=== PATIENT | male | born 1970 | race Caucasian/White ===

== ENCOUNTER → 2017-09-08 | Day surgery (SDC) | payer OTHER ==
[~2017-09-08] MED LIST: IV RINGERS,LACTATED 1000ML 1,000 ML IV; LIDOCAINE 1% PF 2 ML VIAL. ID; MIDAZOLAM HCL/PF 2 MG/2 ML VIAL. IV; PROPOFOL 20 ML IV; fentaNYL PF VIAL 100 MCG/2 ML VIAL IV
[2017-09-08] MEDS: IV RINGERS,LACTATED 1000ML 1,000 ML IV ×2 (07:08)
== END | disposition home or self-care (01) ==
LOC: ENDOS 06:36
DX: K21.0 Gastro-esophageal reflux disease with esophagitis (principal); K44.9 Diaphragmatic hernia without obstruction or gangrene; K29.50 Unspecified chronic gastritis without bleeding; K22.70 Barrett's esophagus without dysplasia; I25.10 Atherosclerotic heart disease of native coronary artery without angina pectoris; I10 Essential (primary) hypertension; E66.9 Obesity, unspecified
CPT/HCPCS: 43239; 88305; J2704

== ENCOUNTER 2018-05-28 21:09 | Inpatient (IN) | payer OTHER ==
[~2018-05-28] VITALS: Ht 172.7 cm; Wt 82.6 kg
[~2018-05-28 21:09] MED LIST changes: +ASPI-482 PO; +CARV3.12 PO; +CLOP75TA PO; +ESOM40CA PO; -IV RINGERS,LACTATED 1000ML 1,000 ML IV; -LIDOCAINE 1% PF 2 ML VIAL. ID; -MIDAZOLAM HCL/PF 2 MG/2 ML VIAL. IV; -PROPOFOL 20 ML IV; -fentaNYL PF VIAL 100 MCG/2 ML VIAL IV; +nexium
[2018-05-28 21:57] LABS: BASO % 1 % (0-3); EOS # 0.3 x10^3/uL (0.0-0.7); EOS % 4 % (0-3); HEMATOCRIT 43.9 % (39.0-53.0); HEMOGLOBIN 15.5 g/dL (13.0-17.5); LYMPH # 1.6 x10^3/uL (1.0-4.8); LYMPH % 23 % (24-48); MEAN CORPUSCULAR HEMOGLOBIN 33 pg (25-35); MEAN CORPUSCULAR HGB CONC 35 g/dL (31-37); MEAN CORPUSCULAR VOLUME 93 fL (79-100); MONO # 0.7 x10^3/uL (0.0-1.1); MONO % 10 % (0-9); NEUT # 4.4 x10^3uL (1.8-7.7); NEUT % 62 % (31-73); PLATELET COUNT 209 x10^3/uL (140-400); RED BLOOD COUNT 4.73 x10^6/uL (4.30-5.70); RED CELL DISTRIBUTION WIDTH 12.6 % (11.5-14.5)
[2018-05-28 22:05] LABS: PROTHROMBIN TIME PATIENT 12.8 SEC (11.7-14.0)
[2018-05-28 22:07] LABS: CALCIUM 9.2 mg/dL (8.5-10.1); CREATININE 1.2 mg/dL (0.7-1.3); GFR 64.9; POTASSIUM 3.5 mmol/L (3.5-5.1)
[2018-05-28 22:13] LABS: ALBUMIN 3.8 g/dL (3.4-5.0); ALBUMIN/GLOBULIN RATIO 1.2 (1.0-1.7); MAGNESIUM 2.2 mg/dL (1.8-2.4); TOTAL BILIRUBIN 0.6 mg/dL (0.2-1.0); TOTAL PROTEIN 7.1 g/dL (6.4-8.2)
[2018-05-28] MEDS ORDERED: ASPIRIN CHEWABLE 81 MG TABLET. PO ONE (22:15)
[2018-05-28] MEDS ORDERED: IV NORMAL SALINE 1000ML BAG 1,000 ML IV ONE (22:15)
--- NOTE | 2018-05-28 22:26 | PHYS DOC ---
Past Medical History Past Medical History: CAD, GERD Past Surgical History: Other Additional Past Surgical Histo: DEVIATED SEPTUM, Cardiac stents Additional Information: Nonsmoker Alcohol Use: None Drug Use: None Adult General Chief Complaint Chief Complaint: CHEST PAIN HPI HPI 47-year-old male with past medical history of CAD requiring stents presents with report of "chest discomfort "2-3 days. Patient reports symptoms did not improve or resolve and therefore patient presented to the ED for evaluation. 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 Zayas who instructed patient to take an extra baby aspirin daily. Patient also report taking nitroglycerine yesterday x 2 with limited relief of symptoms. Reports taking 81mg ASA just prior to arrival to ED. Patient does report some radiation into his jaw and left arm. Reports he currently does not have any pain and patient reports he does not want to stay in the hospital and is hoping to "get things checked out" and be discharged home. Cardiac risk factors of prior CAD and significant family history of CAD. Review of Systems Review of Systems Constitutional: Denies fever or chills [] Eyes: Denies change in visual acuity, redness, or eye pain [] HENT: Denies nasal congestion or sore throat [] Respiratory: Denies cough or shortness of breath [] Cardiovascular: Reports chest pain, denies palpitations or pleuritic pain GI: Denies abdominal pain, nausea, vomiting, or diarrhea [] Musculoskeletal: Denies back pain or leg pain [] Integument: Denies rash or diaphoresis or swelling Neurologic: Denies headache, focal weakness or sensory changes [] Complete systems were reviewed and found to be within normal limits, except as documented in this note. Current Medications Current Medications Current Medications Medications (Trade) Dose Ordered Sig/Alisson Start Time Stop Time Status Last Admin Dose Admin Aspirin (Children'S Aspirin) 243 mg 1X ONCE 05/28/18 22:15 05/28/18 22:16 DC 05/28/18 22:31 243 MG Fentanyl Citrate (Fentanyl 2ml Vial) 50 mcg PRN Q2HR PRN 05/28/18 22:30 05/29/18 22:29 Heparin Sodium (Porcine) (Heparin Sodium) 10,000 unit STK-MED ONCE 05/28/18 22:30 05/28/18 22:31 DC Heparin Sodium/ Dextrose 500 ml @ As Directed STK-MED ONCE 05/28/18 22:30 05/28/18 22:31 DC Info (Anti-Coagulation Monitoring By Pharmacy) 1 each PRN DAILY PRN 05/28/18 22:45 05/29/18 01:50 1 EACH Ondansetron HCl (Zofran) 4 mg PRN Q8HRS PRN 05/28/18 22:30 05/29/18 22:29 Sodium Chloride 1,000 ml @ 1,000 mls/hr 1X ONCE 05/28/18 22:15 05/28/18 23:14 DC 05/28/18 22:36 1,000 MLS/HR Allergies Allergies Allergies Coded Allergies Type Severity Reaction Last Updated Verified No Known Drug Allergies 01/13/15 No Physical Exam Physical Exam Constitutional: Well developed, well nourished, no acute distress, non-toxic appearance. [] HENT: Normocephalic, atraumatic, oropharynx moist Eyes: Conjunctiva normal, no discharge. [] Neck: Normal range of motion, no tenderness Cardiovascular: Heart rate regular rhythm, no murmur [] Lungs & Thorax: Bilateral breath sounds clear to auscultation [] Abdomen: Soft, no tenderness Skin: Warm, dry, no erythema, no rash. [] Extremities: No calf tenderness, ROM intact, no edema. [] Neurologic: Alert and oriented X 3, normal motor function, normal sensory function, no focal deficits noted. [] Psychologic: Affect normal, judgement normal, mood normal. [] Current Patient Data Vital Signs Vital Signs Date Time Temp Pulse Resp B/P (MAP) Pulse Ox O2 Delivery O2 Flow Rate FiO2 05/28/18 22:30 56 17 148/100 (116) 97 Room Air 05/28/18 21:12 98.2 98.2 Lab Values Laboratory Tests Test 05/28/18 21:25 White Blood Count 7.0 x10^3/uL (4.0-11.0) Red Blood Count 4.73 x10^6/uL (4.30-5.70) Hemoglobin 15.5 g/dL (13.0-17.5) Hematocrit 43.9 % (39.0-53.0) Mean Corpuscular Volume 93 fL (79-100) Mean Corpuscular Hemoglobin 33 pg (25-35) Mean Corpuscular Hemoglobin Concent 35 g/dL (31-37) Red Cell Distribution Width 12.6 % (11.5-14.5) Platelet Count 209 x10^3/uL (140-400) Neutrophils (%) (Auto) 62 % (31-73) Lymphocytes (%) (Auto) 23 % (24-48) L Monocytes (%) (Auto) 10 % (0-9) H Eosinophils (%) (Auto) 4 % (0-3) H Basophils (%) (Auto) 1 % (0-3) Neutrophils # (Auto) 4.4 x10^3uL (1.8-7.7) Lymphocytes # (Auto) 1.6 x10^3/uL (1.0-4.8) Monocytes # (Auto) 0.7 x10^3/uL (0.0-1.1) Eosinophils # (Auto) 0.3 x10^3/uL (0.0-0.7) Basophils # (Auto) 0.0 x10^3/uL (0.0-0.2) Prothrombin Time 12.8 SEC (11.7-14.0) Prothrombin Time INR 1.0 (0.8-1.1) Sodium Level 141 mmol/L (136-145) Potassium Level 3.5 mmol/L (3.5-5.1) Chloride Level 106 mmol/L (98-107) Carbon Dioxide Level 27 mmol/L (21-32) Anion Gap 8 (6-14) Blood Urea Nitrogen 12 mg/dL (8-26) Creatinine 1.2 mg/dL (0.7-1.3) Estimated GFR (Cockcroft-Gault) 64.9 BUN/Creatinine Ratio 10 (6-20) Glucose Level 124 mg/dL (70-99) H Calcium Level 9.2 mg/dL (8.5-10.1) Magnesium Level 2.2 mg/dL (1.8-2.4) Total Bilirubin 0.6 mg/dL (0.2-1.0) Aspartate Amino Transferase (AST) 22 U/L (15-37) Alanine Aminotransferase (ALT) 38 U/L (16-63) Alkaline Phosphatase 76 U/L (46-116) Creatine Kinase 108 U/L (39-308) Creatine Kinase MB (Mass) 1.7 ng/mL (0.0-3.6) Creatine Kinase MB Relative Index 1.6 % (0-4) Troponin I Quantitative 0.334 ng/mL (0.000-0.055) ZR-Qnn-H-Type Natriuretic Peptide 81 pg/mL (0-124) Total Protein 7.1 g/dL (6.4-8.2) Albumin 3.8 g/dL (3.4-5.0) Albumin/Globulin Ratio 1.2 (1.0-1.7) Lipase 335 U/L (73-393) Laboratory Tests 05/28/18 21:25 Laboratory Tests 05/28/18 21:25 EKG EKG @2112 Sinus bradycardia at 59bpm, NO ST elevation Radiology/Procedures Radiology/Procedures PROCEDURE: CHEST PA & LATERAL PA and lateral chest. HISTORY: Chest pain PA and lateral views were taken of the chest. Lungs are clear. Heart is normal in size. There is no effusion. IMPRESSION: 1. No acute chest disease. Electronically signed by: Abdelrahman Puga MD (05/28/2018 10:27 PM) [facility] Course & Med Decision Making Course & Med Decision Making Pertinent Labs and Imaging studies reviewed. (See chart for details) patient was significant cardiac risk factors presents with report of "chest discomfort "with report of radiation to left jaw and left arm. Patient denies current pain. 243mg of aspirin provided as patient reports taking 81mg aspirin just prior to arrival. EKG stable. Labs obtained and posted to chart. Troponin indeterminate with concern for NSTEMI. CXR without acute process. Discussed case with Dr. Zayas (cardiology) regarding case. Given symptoms and patient's risk factors, patient requiring admission for further evaluation and treatment. Dr. Zayas is in agreement with admission and request initiation of heparin bolus/gtt. Discussed findings and plan with patient and family, who acknowledge understanding and agreement. Metares[employer] voice recognition software utilized. [employer] Disclaimer [employer] Disclaimer This electronic medical record was generated, in whole or in part, using a voice recognition dictation system. Departure Departure Impression: Primary Impression: NSTEMI (non-ST elevated myocardial infarction) Disposition: 09 ADMITTED INPATIENT Admitting Physician: Bryant Zayas Condition: GUARDED Referrals: BRYANT ZAYAS MD (PCP) Critical Care Time Critical Care Time Spent: 30 minutes Services Performed: Patient management by me, Time spent at bedside, Reviewing test results, Reviewing imaging, Discussing patient care, Documentation in record, Time with fam/surrogate Total critical care time [30 min]. Total critical care time documented does not include time spent on separately billed procedures or the services of residents , students, nurses or physician assistants. I personally saw and examined the patient. I have reviewed all diagnostic interpretations and treatment plans as written. I was present for the cabrales portions of any procedures performed and the inclusive time noted in any critical care statement. Critical care time includes patient management by me, time spent at the patients bedside, time to review lab and imaging results, discussing patient care, documentation in the medical record, and time spent with the family or caregiver. TROY ROY DO May 28, 2018 22:26
[2018-05-28] MEDS ORDERED: ONDANSETRON PF 4 MG/2 ML VIAL. IV PRN (22:30)
[2018-05-28] MEDS ORDERED: HEPARIN for IV BOLUS 10,000 UNIT/10 ML VIAL. ONE (22:30)
[2018-05-28] MEDS ORDERED: HEPARIN 25,000UTS/500ML PREMIX 500 ML IV ONE (22:30)
[2018-05-28] MEDS ORDERED: fentaNYL PF VIAL 100 MCG/2 ML VIAL IV PRN (22:30)
--- NOTE | 2018-05-28 22:30 | RAD ---
PA and lateral chest. HISTORY: Chest pain PA and lateral views were taken of the chest. Lungs are clear. Heart is normal in size. There is no effusion. IMPRESSION: 1. No acute chest disease. Electronically signed by: Abdelrahman Puga MD (05/28/2018 10:27 PM) [facility]
[2018-05-28] MEDS: HEPARIN 25,000UTS/500ML PREMIX 500 ML IV PRN (22:35)
[2018-05-28] MEDS ORDERED: ANTI-COAG MONITOR BY PHARMACY. MC PRN (22:45)
[2018-05-28] MEDS ORDERED: HEPARIN for IV BOLUS 10,000 UNIT/10 ML VIAL. IV ONE (23:00)
[2018-05-28 23:30] VITALS: BP 153/103
--- NOTE | 2018-05-29 00:31 | EKG ---
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
[2018-05-29] MEDS ORDERED: OMEG1CAP6 PO (00:40)
--- NOTE | 2018-05-29 02:03 | EKG ---
[facility] [address] [place] [address] Test Date: 2018-05-28 Test Time: 21:12:12 Pat Name: SKY WHITTAKER Department: Room: 267 1 Gender: M [employer]er [employer]: : 1970 Requested By: TROY ROY Order Number: [id number] Reading MD: Nav Cooney MD Measurements Intervals [place] Rate: 59 P: 26 WV: 152 QRS: -4 QRSD: 92 T: 36 QT: 392 QTc: 392 Interpretive Statements SINUS RHYTHM Electronically Signed On 05-30-2018 11:43:21 CDT by Nav Cooney MD
[2018-05-29 03:00] VITALS: BP 105/63
--- NOTE | 2018-05-29 06:13 | EKG ---
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
[2018-05-29 06:21] LABS: CHOLESTEROL/HDL RATIO 5.9
[2018-05-29 07:34] VITALS: BP 118/75
[2018-05-29 10:56] VITALS: BP 134/88
--- NOTE | 2018-05-29 11:49 | PDOC1 ---
History and Physical Date of Admission Date of Admission DATE: 05/29/18 TIME: 11:45 Identification/Chief Complaint Chief Complaint Chest pain History of Present Illness History of Present Illness This patient is a 47-year-old gentleman with a known history of hypertension and coronary artery disease that had a stent placed about 20 half years ago. For the last 3 days he has been having intermittent episodes of chest pains and he did not want to come into the hospital until finally last night he had more chest discomfort and he came to the ER. After arrival in the ER his EKG did not show any acute ST segment elevation but he had a mild elevation of the troponin. Therefore he was admitted and started on IV heparin. Today he is not having any chest pains at this time. Past Medical History Cardiovascular: CAD, HTN GI: GERD Current Problem List Problem List Problems Medical Problems: (1) NSTEMI (non-ST elevated myocardial infarction) Status: Acute Current Medications Current Medications Current Medications Aspirin (Children'S Aspirin) 243 mg 1X ONCE PO Last administered on at 22:31; Start 05/28/18 at 22:15; Stop 05/28/18 at 22:16; Status DC Sodium Chloride 1,000 ml @ 1,000 mls/hr 1X ONCE IV Last administered on 05/28at 22:36; Start 05/28/18 at 22:15; Stop 05/28/18 at 23:14; Status DC Heparin Sodium (Porcine) (Heparin Sodium) 4,000 unit 1X ONCE IV Last administered on 05/28/18at 22:35; Start 05/28/18 at 23:00; Stop 05/28/18 at 23 :01; Status DC Heparin Sodium/ Dextrose 500 ml @ 0 mls/hr CONT PRN IV SEE I/O RECORD Last administered on 05/28/18at 22:35; Start 05/28/18 at 22:30 Info (Anti-Coagulation Monitoring By Pharmacy) 1 each PRN DAILY PRN MC SEE COMMENTS Last administered on 05/29/18at 01:50; Start 05/28/18 at 22:45 Ondansetron HCl (Zofran) 4 mg PRN Q8HRS PRN IV NAUSEA/VOMITING 1ST CHOICE; Start 05/28/18 at 22:30; Stop 05/29/18 at 22:29 Fentanyl Citrate (Fentanyl 2ml Vial) 50 mcg PRN Q2HR PRN IV SEVERE PAIN; Start 05/28/18 at 22:30; Stop 05/29/18 at 22:29 Heparin Sodium (Porcine) (Heparin Sodium) 10,000 unit STK-MED ONCE .ROUTE ; Start 05/28/18 at 22:30; Stop 05/28/18 at 22:31; Status DC Heparin Sodium/ Dextrose 500 ml @ As Directed STK-MED ONCE IV ; Start at 22:30; Stop 05/28/18 at 22:31; Status DC Aspirin (Ecotrin) 81 mg DAILY PO ; Start 05/30/18 at 09:00; Status UNV Clopidogrel Bisulfate (Plavix) 75 mg DAILY PO ; Start 05/30/18 at 09:00; Status UNV Fish Oil (Fish Oil) 1,000 mg DAILY PO ; Start 05/30/18 at 09:00; Status UNV Non-Formulary Medication (Esomeprazole Magnesium (Nexium Capsule)) 40 mg DAILYAC PO ; Start 05/30/18 at 07:30; Status UNV Active Scripts Active Reported Fish Oil 1,000 Mg Capsule (Hopkins-3 Fatty Acids/Fish Oil) 1 Each Capsule 1 Each PO DAILY Nexium Capsule (Esomeprazole Magnesium) 40 Mg Capsule.dr 40 Mg PO DAILYAC Aspir 81 (Aspirin) 81 Mg Tablet.dr 1 Tab PO DAILY Clopidogrel (Clopidogrel Bisulfate) 75 Mg Tablet 1 Tab PO DAILY Allergies Allergies: Coded Allergies: No Known Drug Allergies (Unverified , 01/13/15) Physical Exam General: Alert, Oriented X3, Cooperative, No acute distress HEENT: Atraumatic, PERRLA Lungs: Clear to auscultation Heart: S1S2, RRR, no murmurs Abdomen: Normal bowel sounds, Soft Extremities: No edema Psych/Mental Status: Mental status NL Vitals Vitals Vital Signs Date Time Temp Pulse Resp B/P (MAP) Pulse Ox O2 Delivery O2 Flow Rate FiO2 05/29/18 10:56 98.3 50 18 134/88 (103) 98 Room Air 98.3 Labs Labs Laboratory Tests Test 05/28/18 21:25 05/29/18 01:30 05/29/18 05:35 White Blood Count 7.0 x10^3/uL (4.0-11.0) Red Blood Count 4.73 x10^6/uL (4.30-5.70) Hemoglobin 15.5 g/dL (13.0-17.5) Hematocrit 43.9 % (39.0-53.0) Mean Corpuscular Volume 93 fL (79-100) Mean Corpuscular Hemoglobin 33 pg (25-35) Mean Corpuscular Hemoglobin Concent 35 g/dL (31-37) Red Cell Distribution Width 12.6 % (11.5-14.5) Platelet Count 209 x10^3/uL (140-400) Neutrophils (%) (Auto) 62 % (31-73) Lymphocytes (%) (Auto) 23 % (24-48) Monocytes (%) (Auto) 10 % (0-9) Eosinophils (%) (Auto) 4 % (0-3) Basophils (%) (Auto) 1 % (0-3) Neutrophils # (Auto) 4.4 x10^3uL (1.8-7.7) Lymphocytes # (Auto) 1.6 x10^3/uL (1.0-4.8) Monocytes # (Auto) 0.7 x10^3/uL (0.0-1.1) Eosinophils # (Auto) 0.3 x10^3/uL (0.0-0.7) Basophils # (Auto) 0.0 x10^3/uL (0.0-0.2) Prothrombin Time 12.8 SEC (11.7-14.0) Prothromb Time International Ratio 1.0 (0.8-1.1) Sodium Level 141 mmol/L (136-145) Potassium Level 3.5 mmol/L (3.5-5.1) Chloride Level 106 mmol/L (98-107) Carbon Dioxide Level 27 mmol/L (21-32) Anion Gap 8 (6-14) Blood Urea Nitrogen 12 mg/dL (8-26) Creatinine 1.2 mg/dL (0.7-1.3) Estimated GFR (Cockcroft-Gault) 64.9 BUN/Creatinine Ratio 10 (6-20) Glucose Level 124 mg/dL (70-99) Calcium Level 9.2 mg/dL (8.5-10.1) Magnesium Level 2.2 mg/dL (1.8-2.4) Total Bilirubin 0.6 mg/dL (0.2-1.0) Aspartate Amino Transf (AST/SGOT) 22 U/L (15-37) Alanine Aminotransferase (ALT/SGPT) 38 U/L (16-63) Alkaline Phosphatase 76 U/L (46-116) Creatine Kinase 108 U/L (39-308) Creatine Kinase MB (Mass) 1.7 ng/mL (0.0-3.6) Creatine Kinase MB Relative Index 1.6 % (0-4) Troponin I Quantitative 0.334 ng/mL (0.000-0.055) 0.567 ng/mL (0.000-0.055) 0.689 ng/mL (0.000-0.055) PI-Sdi-P-Type Natriuretic Peptide 81 pg/mL (0-124) Total Protein 7.1 g/dL (6.4-8.2) Albumin 3.8 g/dL (3.4-5.0) Albumin/Globulin Ratio 1.2 (1.0-1.7) Lipase 335 U/L (73-393) Heparin Anti-Xa Act, Unfractionated 0.74 IU/mL (0.30-0.70) Triglycerides Level 125 mg/dL (0-150) Cholesterol Level 177 mg/dL (0-200) LDL Cholesterol, Calculated 122 mg/dL (0-100) VLDL Cholesterol, Calculated 25 mg/dL (0-40) Non-HDL Cholesterol Calculated 147 mg/dL (0-129) HDL Cholesterol 30 mg/dL (40-60) Cholesterol/HDL Ratio 5.9 Laboratory Tests Test 05/28/18 21:25 05/29/18 01:30 05/29/18 05:35 White Blood Count 7.0 x10^3/uL (4.0-11.0) Red Blood Count 4.73 x10^6/uL (4.30-5.70) Hemoglobin 15.5 g/dL (13.0-17.5) Hematocrit 43.9 % (39.0-53.0) Mean Corpuscular Volume 93 fL (79-100) Mean Corpuscular Hemoglobin 33 pg (25-35) Mean Corpuscular Hemoglobin Concent 35 g/dL (31-37) Red Cell Distribution Width 12.6 % (11.5-14.5) Platelet Count 209 x10^3/uL (140-400) Neutrophils (%) (Auto) 62 % (31-73) Lymphocytes (%) (Auto) 23 % (24-48) Monocytes (%) (Auto) 10 % (0-9) Eosinophils (%) (Auto) 4 % (0-3) Basophils (%) (Auto) 1 % (0-3) Neutrophils # (Auto) 4.4 x10^3uL (1.8-7.7) Lymphocytes # (Auto) 1.6 x10^3/uL (1.0-4.8) Monocytes # (Auto) 0.7 x10^3/uL (0.0-1.1) Eosinophils # (Auto) 0.3 x10^3/uL (0.0-0.7) Basophils # (Auto) 0.0 x10^3/uL (0.0-0.2) Prothrombin Time 12.8 SEC (11.7-14.0) Prothromb Time International Ratio 1.0 (0.8-1.1) Sodium Level 141 mmol/L (136-145) Potassium Level 3.5 mmol/L (3.5-5.1) Chloride Level 106 mmol/L (98-107) Carbon Dioxide Level 27 mmol/L (21-32) Anion Gap 8 (6-14) Blood Urea Nitrogen 12 mg/dL (8-26) Creatinine 1.2 mg/dL (0.7-1.3) Estimated GFR (Cockcroft-Gault) 64.9 BUN/Creatinine Ratio 10 (6-20) Glucose Level 124 mg/dL (70-99) Calcium Level 9.2 mg/dL (8.5-10.1) Magnesium Level 2.2 mg/dL (1.8-2.4) Total Bilirubin 0.6 mg/dL (0.2-1.0) Aspartate Amino Transf (AST/SGOT) 22 U/L (15-37) Alanine Aminotransferase (ALT/SGPT) 38 U/L (16-63) Alkaline Phosphatase 76 U/L (46-116) Creatine Kinase 108 U/L (39-308) Creatine Kinase MB (Mass) 1.7 ng/mL (0.0-3.6) Creatine Kinase MB Relative Index 1.6 % (0-4) Troponin I Quantitative 0.334 ng/mL (0.000-0.055) 0.567 ng/mL (0.000-0.055) 0.689 ng/mL (0.000-0.055) BR-Okj-D-Type Natriuretic Peptide 81 pg/mL (0-124) Total Protein 7.1 g/dL (6.4-8.2) Albumin 3.8 g/dL (3.4-5.0) Albumin/Globulin Ratio 1.2 (1.0-1.7) Lipase 335 U/L (73-393) Heparin Anti-Xa Act, Unfractionated 0.74 IU/mL (0.30-0.70) Triglycerides Level 125 mg/dL (0-150) Cholesterol Level 177 mg/dL (0-200) LDL Cholesterol, Calculated 122 mg/dL (0-100) VLDL Cholesterol, Calculated 25 mg/dL (0-40) Non-HDL Cholesterol Calculated 147 mg/dL (0-129) HDL Cholesterol 30 mg/dL (40-60) Cholesterol/HDL Ratio 5.9 VTE Prophylaxis Ordered VTE Prophylaxis Devices: Yes VTE Pharmacological Prophylaxi: Yes Assessment/Plan Assessment/Plan This patient comes in with chest pains and an apparent non-STEMI. We discussed the situation options and risks and he was decided to do a heart catheterization in the morning and to continue with heparin until then. CIERA TALAVERA MD May 29, 2018 11:49
--- NOTE | 2018-05-29 11:51 | PDOC ---
MODERATE SEDATION ASSESSMENT RISKS/ALTERNATIVES Risks/Alternatives Risks and alternatives of this type of sedation and procedure discussed with: RISK/ALTERNATIVES: Patient H & P ON CHART H & P H & P on chart and reviewed for co-morbid conditions and appropriate labs. H&P ON CHART: Yes STATUS PREG STATUS ASSESSED: Yes MEDS/ALLERGIES REVIEWED Meds/Allergies Reviewed Medications and Allergies including time and route of recently administered narcotics and sedatives. MEDS/ALLERGIES REVIEWED: Yes ASA RATING ASA RATING: II AIRWAY ASSESSMENT Airway Assessment Airway patency, oral function limitations, presence of caps, crowns, dentures, partials, and ability to extend neck assessed. AIRWAY ASSESSMENT: Yes MALLAMPATI SCORE MALLAMPATI SCORE: II PRE-SEDATION ASSESSMENT PRE-SEDATION ASSESSMENT: Yes CIERA TALAVERA MD May 29, 2018 11:51
[2018-05-29] MEDS: OMEGA-3 FATTY ACIDS/FISH OIL 1,000 MG CAPSULE. PO SCH (12:18)
[2018-05-29] MEDS: ASPIRIN ENTERIC COATED 81 MG TABLET.DR. PO SCH (12:18)
[2018-05-29] MEDS: CLOPIDOGREL BISULFATE 75 MG TABLET PO SCH (12:19)
[2018-05-29] MEDS: PANTOPRAZOLE 40 MG TABLET.DR. PO SCH (12:20)
[2018-05-29] MEDS: IV 1/2 NORMAL SALINE 1,000 ML IV SCH (12:20)
[2018-05-29 14:33] VITALS: BP 132/80
[2018-05-29 19:00] VITALS: BP 127/79
[2018-05-29 23:00] VITALS: BP 147/81
[2018-05-29] MEDS: HEPARIN 25,000UTS/500ML PREMIX 500 ML IV PRN (23:45)
[2018-05-30] VITALS (8 sets, daily range): BP systolic 119–136; BP diastolic 68–90
[2018-05-30] MEDS: CLOPIDOGREL BISULFATE 75 MG TABLET PO SCH (07:45)
[2018-05-30] MEDS: OMEGA-3 FATTY ACIDS/FISH OIL 1,000 MG CAPSULE. PO SCH (07:45)
[2018-05-30] MEDS: PANTOPRAZOLE 40 MG TABLET.DR. PO SCH (07:45)
[2018-05-30] MEDS: ASPIRIN ENTERIC COATED 81 MG TABLET.DR. PO SCH (07:46)
[2018-05-30] MEDS: IV 1/2 NORMAL SALINE 1,000 ML IV SCH ×2 (07:48→21:11)
--- NOTE | 2018-05-30 08:33 | EKG ---
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
--- NOTE | 2018-05-30 09:24 | PDOC ---
PROGRESS NOTES Subjective Subjective Patient denies any chest pain today. Objective Objective Vital Signs Date Time Temp Pulse Resp B/P (MAP) Pulse Ox O2 Delivery O2 Flow Rate FiO2 05/30/18 08:00 Room Air 05/30/18 07:50 97.9 50 20 131/86 (101) 95 97.9 Intake and Output 05/30/18 07:00 Intake Total 850 ml Balance 850 ml Intake Oral 850 ml # Voids 3 Physical Exam Physical Exam No significant cardiac changes. Assessment Assessment Problems Medical Problems: (1) NSTEMI (non-ST elevated myocardial infarction) Status: Acute Plan Plan of Care Cath this am. D/C Heparin. Continue ASA & Plavix. Start Coreg 3.125mg BID & Ranexa 500mg BID. Plan to discharge tomorrow am. Comment Review of Relevant I have reviewed the following items savannah (where applicable) has been applied. Labs Laboratory Tests Test 05/28/18 21:25 05/29/18 01:30 05/29/18 05:35 05/30/18 04:50 White Blood Count 7.0 x10^3/uL (4.0-11.0) Red Blood Count 4.73 x10^6/uL (4.30-5.70) Hemoglobin 15.5 g/dL (13.0-17.5) Hematocrit 43.9 % (39.0-53.0) Mean Corpuscular Volume 93 fL (79-100) Mean Corpuscular Hemoglobin 33 pg (25-35) Mean Corpuscular Hemoglobin Concent 35 g/dL (31-37) Red Cell Distribution Width 12.6 % (11.5-14.5) Platelet Count 209 x10^3/uL (140-400) Neutrophils (%) (Auto) 62 % (31-73) Lymphocytes (%) (Auto) 23 % (24-48) Monocytes (%) (Auto) 10 % (0-9) Eosinophils (%) (Auto) 4 % (0-3) Basophils (%) (Auto) 1 % (0-3) Neutrophils # (Auto) 4.4 x10^3uL (1.8-7.7) Lymphocytes # (Auto) 1.6 x10^3/uL (1.0-4.8) Monocytes # (Auto) 0.7 x10^3/uL (0.0-1.1) Eosinophils # (Auto) 0.3 x10^3/uL (0.0-0.7) Basophils # (Auto) 0.0 x10^3/uL (0.0-0.2) Prothrombin Time 12.8 SEC (11.7-14.0) Prothromb Time International Ratio 1.0 (0.8-1.1) Sodium Level 141 mmol/L (136-145) Potassium Level 3.5 mmol/L (3.5-5.1) Chloride Level 106 mmol/L (98-107) Carbon Dioxide Level 27 mmol/L (21-32) Anion Gap 8 (6-14) Blood Urea Nitrogen 12 mg/dL (8-26) Creatinine 1.2 mg/dL (0.7-1.3) Estimated GFR (Cockcroft-Gault) 64.9 BUN/Creatinine Ratio 10 (6-20) Glucose Level 124 mg/dL (70-99) Calcium Level 9.2 mg/dL (8.5-10.1) Magnesium Level 2.2 mg/dL (1.8-2.4) Total Bilirubin 0.6 mg/dL (0.2-1.0) Aspartate Amino Transf (AST/SGOT) 22 U/L (15-37) Alanine Aminotransferase (ALT/SGPT) 38 U/L (16-63) Alkaline Phosphatase 76 U/L (46-116) Creatine Kinase 108 U/L (39-308) Creatine Kinase MB (Mass) 1.7 ng/mL (0.0-3.6) Creatine Kinase MB Relative Index 1.6 % (0-4) Troponin I Quantitative 0.334 ng/mL (0.000-0.055) 0.567 ng/mL (0.000-0.055) 0.689 ng/mL (0.000-0.055) XZ-Irq-M-Type Natriuretic Peptide 81 pg/mL (0-124) Total Protein 7.1 g/dL (6.4-8.2) Albumin 3.8 g/dL (3.4-5.0) Albumin/Globulin Ratio 1.2 (1.0-1.7) Lipase 335 U/L (73-393) Heparin Anti-Xa Act, Unfractionated 0.74 IU/mL (0.30-0.70) 0.61 IU/mL (0.30-0.70) Triglycerides Level 125 mg/dL (0-150) Cholesterol Level 177 mg/dL (0-200) LDL Cholesterol, Calculated 122 mg/dL (0-100) VLDL Cholesterol, Calculated 25 mg/dL (0-40) Non-HDL Cholesterol Calculated 147 mg/dL (0-129) HDL Cholesterol 30 mg/dL (40-60) Cholesterol/HDL Ratio 5.9 Laboratory Tests Test 05/30/18 04:50 Heparin Anti-Xa Act, Unfractionated 0.61 IU/mL (0.30-0.70) Medications Current Medications Aspirin (Children'S Aspirin) 243 mg 1X ONCE PO Last administered on at 22:31; Start 05/28/18 at 22:15; Stop 05/28/18 at 22:16; Status DC Sodium Chloride 1,000 ml @ 1,000 mls/hr 1X ONCE IV Last administered on 05/28at 22:36; Start 05/28/18 at 22:15; Stop 05/28/18 at 23:14; Status DC Heparin Sodium (Porcine) (Heparin Sodium) 4,000 unit 1X ONCE IV Last administered on 05/28/18at 22:35; Start 05/28/18 at 23:00; Stop 05/28/18 at 23 :01; Status DC Heparin Sodium/ Dextrose 500 ml @ 0 mls/hr CONT PRN IV SEE I/O RECORD Last administered on 05/29/18at 23:45; Start 05/28/18 at 22:30 Info (Anti-Coagulation Monitoring By Pharmacy) 1 each PRN DAILY PRN MC SEE COMMENTS Last administered on 05/29/18at 01:50; Start 05/28/18 at 22:45 Ondansetron HCl (Zofran) 4 mg PRN Q8HRS PRN IV NAUSEA/VOMITING 1ST CHOICE; Start 05/28/18 at 22:30; Stop 05/29/18 at 22:29; Status DC Fentanyl Citrate (Fentanyl 2ml Vial) 50 mcg PRN Q2HR PRN IV SEVERE PAIN; Start 05/28/18 at 22:30; Stop 05/29/18 at 22:29; Status DC Heparin Sodium (Porcine) (Heparin Sodium) 10,000 unit STK-MED ONCE .ROUTE ; Start 05/28/18 at 22:30; Stop 05/28/18 at 22:31; Status DC Heparin Sodium/ Dextrose 500 ml @ As Directed STK-MED ONCE IV ; Start at 22:30; Stop 05/28/18 at 22:31; Status DC Aspirin (Ecotrin) 81 mg DAILY PO Last administered on 05/30/18at 07:46; Start 05/29/18 at 12:00 Clopidogrel Bisulfate (Plavix) 75 mg DAILY PO Last administered on 05/30/18at 07:45; Start 05/29/18 at 12:00 Fish Oil (Fish Oil) 1,000 mg DAILY PO Last administered on 05/30/18at 07:45; Start 05/29/18 at 12:00 Pantoprazole Sodium (Protonix) 40 mg DAILYAC PO Last administered on at 07:45; Start 05/29/18 at 13:00 Sodium Chloride 1,000 ml @ 60 mls/hr [id number] IV Last administered on at 07:48; Start 05/29/18 at 11:51 Active Scripts Active Reported Fish Oil 1,000 Mg Capsule ([place]-3 Fatty Acids/Fish Oil) 1 Each Capsule 1 Each PO DAILY Nexium Capsule (Esomeprazole Magnesium) 40 Mg Capsule.dr 40 Mg PO DAILYAC Aspir 81 (Aspirin) 81 Mg Tablet.dr 1 Tab PO DAILY Clopidogrel (Clopidogrel Bisulfate) 75 Mg Tablet 1 Tab PO DAILY Vitals/I & O Vital Sign - Last 24 Hours 05/29/18 05/29/18 05/29/18 05/29/18 10:56 14:33 19:00 20:11 Temp 98.3 98.6 98.2 98.3 98.6 98.2 Pulse 50 59 56 Resp 18 18 18 B/P (MAP) 134/88 (103) 132/80 (97) 127/79 (95) Pulse Ox 98 98 95 O2 Delivery Room Air Room Air Room Air Room Air 05/29/18 05/30/18 05/30/18 05/30/18 23:00 03:00 07:50 08:00 Temp 98.3 98.3 97.9 98.3 98.3 97.9 Pulse 60 55 50 Resp 16 18 20 B/P (MAP) 147/81 (103) 136/81 (99) 131/86 (101) Pulse Ox 91 94 95 O2 Delivery Room Air Room Air Room Air Room Air Intake and Output 05/29/18 05/29/18 05/30/18 15:00 23:00 07:00 Intake Total 850 ml Balance 850 ml CIERA TALAVERA MD May 30, 2018 09:24
[2018-05-30] MEDS ORDERED: LIDOCAINE 1% Multi-Dose 50 ML VIAL. ONE (09:32)
[2018-05-30] MEDS ORDERED: IODIXANOL 320 MG/ML 100 ML VIAL. ONE (09:32)
[2018-05-30] MEDS ORDERED: fentaNYL PF VIAL 100 MCG/2 ML VIAL ONE (09:57)
[2018-05-30] MEDS ORDERED: MIDAZOLAM HCL/PF 2 MG/2 ML VIAL. ONE (09:57)
[2018-05-30] MEDS ORDERED: fentaNYL PF VIAL 100 MCG/2 ML VIAL IV ONE (10:30)
[2018-05-30] MEDS ORDERED: IODIXANOL 320 MG/ML 100 ML VIAL. IART ONE (10:30)
[2018-05-30] MEDS ORDERED: LIDOCAINE 1% Multi-Dose 50 ML VIAL. INJ ONE (10:30)
[2018-05-30] MEDS ORDERED: MIDAZOLAM HCL/PF 2 MG/2 ML VIAL. IV ONE (10:30)
[2018-05-30] MEDS: CARVEDILOL 3.125 MG TABLET. PO SCH ×2 (11:00→16:34)
[2018-05-30] MEDS: RANOLAZINE 500 MG TAB.ER.12H PO SCH ×2 (11:26→20:37)
[2018-05-30] MEDS ORDERED: ONDANSETRON PF 4 MG/2 ML VIAL. IV PRN (12:30)
[2018-05-30] MEDS ORDERED: MORPHINE SULFATE 2 MG/ML VIAL. IV PRN (12:30)
--- NOTE | 2018-05-30 19:04 | PDOC4 ---
PROCEDURE Procedure PROCEDURE NOTE Procedure: Left heart catheterization with angiography and ventriculography. Preoperative diagnosis: Chest pain, non-STEMI, coronary artery disease. Postoperative diagnosis: Chest pain, non-STEMI, coronary artery disease, diffuse small vessel coronary artery disease, status post occlusion of a small first marginal. Procedure note: After obtaining informed consent the patient was taken to the Claims Account Specialist. With the patient in the supine position the right groin area was prepped and draped in the usual fashion. The area was infiltrated with Xylocaine to obtain topical anesthesia. Using Seldinger technique a Cordis sheath was inserted into the femoral artery. A left Almar catheter was then utilized to engage the left coronary os some views of the left coronary artery were then done. A right Lamar catheter was then utilized to engage the right coronary os and views of the right coronary artery were done. A pigtail catheter was then utilized to do a ventriculogram. After the ventriculogram was done and pullback pressures were done from the LV to the AO. I reviewed the pictures and decided to terminate the procedure at this point therefore after doing a view of the femoral artery and Angio-Seal collagen plug was deployed and there did not appear to be any significant bleeding. A dressing was applied to the groin and the patient was transferred back to his room in satisfactory condition after tolerating the procedure rather well. Findings: Coronaries: the left main is a medium size vessel that is normal. The LAD is a medium to large size vessel that has diffuse 20-30% plaquing. There is diffuse plaquing of small diagonal vessels. The circumflex is a medium size vessel with mild diffuse disease in the 20-30% range. The first marginal is totally occluded at the ostium and there appears to be diffuse disease of this very Small marginal. The second marginal is a medium to large size vessel and it is the obtuse marginal. It has a stent in the proximal part and this is open and has excellent flow. No significant In stable restenosis. The RCA is a large dominant vessel there is diffuse 30-40% disease of the proximal segment and 20-30% diffuse disease of the distal segment. The posterolateral Branch is a small vessel with mild diffuse disease. The PDA is a medium size vessel with mild 20-30% plaquing and very good flow. Ventriculogram: The left ventricle has a low normal left ventricular ejection fraction that was estimated to be about 50%. The left ventricular end-diastolic pressure was estimated to be 19 mmHg. There was no gradient across the aortic valve on the pullback from the LV to the AO. Impression: This patient appears to have had a non-STEMI in view of the occlusion of the first marginal branch but it is such a small diffusely diseased vessel that probably cannot be stented or angioplastied therefore I would recommend medical treatment for this patient. The patient has diffuse disease of all the vessels mostly mild plaquing in the 20-30%. The left ventricular ejection fraction is low normal. This patient needs to have medical treatment with tight blood pressure control, diet, exercise and I would recommend Ranexa 500 mg by mouth twice a day as well as a beta david and at some point add an Hilton or an ARB. I would like to also start cardiac rehabilitation on this patient and see how he does. If the patient is not compliant with his treatment I'm concerned that there may be fast progression of the coronary artery disease and he may wind up needing to have CABG. I would also recommend aspirin and Plavix for life on this patient. CIERA TALAVERA MD May 30, 2018 19:04
--- NOTE | 2018-05-30 19:09 | CARD ---
MR#: [id number] Date of Study: 05/30/2018 Ordering Physician: BRYANT ZAYAS Referring Physician: BRYANT ZAYAS Tech: RT Lo (R) APPROVED REPORT Technologist: RT Lo (R) Nurse: Staci Carrasco R.N. Procedure(s) performed: Moderate sedation: 23 minutes PROCEDURE NARRATIVE [facility] PROCEDURE Patient Name: Jesus Camacho Number: [id number] Date of : 1970Patient Status: Admitted Inpatient Attending Doctor[facility] [id number] PROCEDURE NOTE PROCEDURE Procedure PROCEDURE NOTE Procedure: Left heart catheterization with angiography and ventriculography. Preoperative diagnosis: Chest pain, non-STEMI, coronary artery disease. Postoperative diagnosis: Chest pain, non-STEMI, coronary artery disease, diffuse small vessel coronar y artery disease, status post occlusion of a small first marginal. Procedure note: After obtaining informed consent the patient was taken to the Dispute Resolution Analyst. With the patient in the supine position the right groin area was prepped and draped in the usual [facility] ion. The area was infiltrated with Xylocaine to obtain topical anesthesia. Using Seldinger technique a Cordis sheath was inserted into the femoral artery. A left Lamar catheter was then utilized to engage the left coronary os some views of the left coron bina artery were then done. A right Lamar catheter was then utilized to engage the right coronary os and views of the right cor onary artery were done. A pigtail catheter was then utilized to do a ventriculogram. After the ventriculogram was done and pu llback pressures were done from the LV to the AO. I reviewed the pictures and decided to terminate the procedure at this point therefore after doing a view of the femoral artery and Angio-Seal collagen plug was deployed and there did not appear to be a ny significant bleeding. A dressing was applied to the groin and the patient was transferred back to his room in satisfactory condition after tolerating the procedure rather well. Findings: Coronaries: the left main is a medium size vessel that is normal. The LAD is a medium to large size v essel that has diffuse 20-30% plaquing. There is diffuse plaquing of small diagonal vessels. The circumflex is a medium size vessel with mild diffuse disease in the 20-30% r patience. The first marginal is totally occluded at the ostium and there appears to be diffuse disease of this very Small marginal. The second marginal is a medium to large size vessel and it is t he obtuse marginal. It has a stent in the proximal part and this is open and has excellent flow. No s ignificant In stable restenosis. The RCA is a large dominant vessel there is diffuse 30-40% disease of the proximal segment and 20-30% diffuse disease of the distal segment. The posterolateral Branch is a small vessel with mild diffuse disease. The PDA is a medium size ves shamika with mild 20-30% plaquing and very good flow. Ventriculogram: The left ventricle has a low normal left ventricular ejection fraction that was estim ated to be about 50%. The left ventricular end-diastolic pressure was estimated to be 19 mmHg. There was no gradient across the aortic valve on the pullback from the LV to th e AO. Impression: This patient appears to have had a non-STEMI in view of the occlusion of the first marginal branch bu t it is such a small diffusely diseased vessel that probably cannot be stented or angioplastied there fore I would recommend medical treatment for this patient. The patient has diffuse disease of all the vessels mostly mild plaquing in the 20-30%. The left ventricular ejection fraction is low normal. This patient needs to have medical treatment with tight blood pressure control, diet, exercise and I would recommend Ranexa 500 mg by mouth twice a day as well as a beta david and at some point add an Hilton or an ARB. I would like to also start cardiac rehabilitation on this patient and see how he does. If the patient is not compliant with his treatment I'm concerned that there may be fast progression o f the coronary artery disease and he may wind up needing to have CABG. I would also recommend aspirin and Plavix for life on this patient. BRYANT ZAYAS MDOct 2017 19:04 Signed by : Bryant Zayas MD Electronically Approved : 05/30/2018 19:08:46
[2018-05-31 03:30] VITALS: BP 118/69
[2018-05-31 07:05] VITALS: BP 114/69
[2018-05-31] MEDS: PANTOPRAZOLE 40 MG TABLET.DR. PO SCH (07:30)
[2018-05-31] MEDS: CARVEDILOL 3.125 MG TABLET. PO SCH (08:00)
--- NOTE | 2018-05-31 08:53 | PDOC3 ---
*Discharge Summary* Date of Admission: May 28, 2018 Date of Discharge: May 31, 2018 Admitting Diagnosis Problems Medical Problems: (1) NSTEMI (non-ST elevated myocardial infarction) Status: Acute Final Diagnosis Problems Medical Problems: (1) NSTEMI (non-ST elevated myocardial infarction) Status: Acute Procedures Cardiac catheterization Brief Hospital Course This patient is a 47-year-old gentleman with a known history of hypertension and coronary artery disease that had a stent placed about 20 half years ago. For 3 days prior to admission he was having intermittent episodes of chest pains which became progressively worse and eventually led him to present to the ER. After arrival in the ER his EKG did not show any acute ST segment elevation but he had a mild elevation of his troponins. He was admitted and started on IV heparin. A cardiac catheterization was performed and found a totally occluded first marginal artery with plaques found throughout the coronary systems. Patient has been started on oral cardiac medications and we will have him follow up as an outpatient after meeting with cardiac rehab. His chest pain has resolved and he is stable cardiac-hinton at this time. The situation, options, medications, diet, exercise, as well as follow-up were discussed with the patient. Disposition/Orders: D/C to Home CONDITION AT DISCHARGE: Improved, Stable Home Meds Reported Medications [place]-3 Fatty Acids/Fish Oil (FISH OIL 1,000 MG CAPSULE) 1 Each Capsule, 1 EACH PO DAILY, CAP 05/29/18 Esomeprazole Magnesium (NEXIUM CAPSULE) 40 Mg Capsule.dr, 40 MG PO DAILYAC, #30 CAP 0 Refills 09/08/17 Aspirin (ASPIR 81) 81 Mg Tablet.dr, 1 TAB PO DAILY, #30 TAB 5 Refills 03/19/16 Clopidogrel Bisulfate (CLOPIDOGREL) 75 Mg Tablet, 1 TAB PO DAILY, #30 TAB 1 Refill 03/19/16 Discontinued Reported Medications [nexium] No Conflict Check 01/13/15 Scheduled Aspirin (Aspir 81), 1 TAB PO DAILY, (Reported) Clopidogrel Bisulfate (Clopidogrel), 1 TAB PO DAILY, (Reported) Esomeprazole Magnesium (Nexium Capsule), 40 MG PO DAILYAC, (Reported) [place]-3 Fatty Acids/Fish Oil (Fish Oil 1,000 Mg Capsule), 1 EACH PO DAILY, ( Reported) Discontinued Medications [nexium], (Reported) FOLLOW UP APPOINTMENT: Follow up at clinic in 1 week. Time Spent Total time spent with patient [] minutes for coordination of care, counseling, and education. CIERA TALAVERA MD May 31, 2018 08:52
[2018-05-31] MEDS: CLOPIDOGREL BISULFATE 75 MG TABLET PO SCH (09:19)
[2018-05-31] MEDS: ASPIRIN ENTERIC COATED 81 MG TABLET.DR. PO SCH (09:19)
[2018-05-31] MEDS: OMEGA-3 FATTY ACIDS/FISH OIL 1,000 MG CAPSULE. PO SCH (09:19)
[2018-05-31 09:20] VITALS: BP 114/69
[2018-05-31] MEDS: RANOLAZINE 500 MG TAB.ER.12H PO SCH (09:20)
== END 2018-05-31 12:02 | disposition home or self-care (01) | DRG 282 ==
LOC: ER 21:09 → CVICU 22:56
PROVIDERS: ADMIT Internal Medicine Cardiovascular Disease; ATTEND Internal Medicine Cardiovascular Disease
PROC: 4A023N7 Measurement of Cardiac Sampling and Pressure, Left Heart, Percutaneous Approach (ICD-10-PCS; principal; 2018-05-30)
PROC: B2111ZZ Fluoroscopy of Multiple Coronary Arteries using Low Osmolar Contrast (ICD-10-PCS; 2018-05-30)
PROC: B2151ZZ Fluoroscopy of Left Heart using Low Osmolar Contrast (ICD-10-PCS; 2018-05-30)
DX: I21.4 Non-ST elevation (NSTEMI) myocardial infarction (principal); K21.9 Gastro-esophageal reflux disease without esophagitis; I25.10 Atherosclerotic heart disease of native coronary artery without angina pectoris; I10 Essential (primary) hypertension; Z79.82 Long term (current) use of aspirin; Z82.49 Family history of ischemic heart disease and other diseases of the circulatory system; Z95.5 Presence of coronary angioplasty implant and graft
CPT/HCPCS: 36415; 71046; 80053; 80061; 82553; 83690; 83735; 83880; 84484; 85025; 85520; 85610; 93005; 93458; 96361; 96374; 99152; 99153; C1769; C1771; C1892; G0269; J1644; J2250; J2405; J3010; J7030; 99285-25

== ENCOUNTER → 2018-09-16 | Outpatient (CLI) | payer OTHER ==
[~2018-09-16] MED LIST changes: +OMEG1CAP6 PO
[2018-09-17 04:45] LABS: CHOLESTEROL/HDL RATIO 4.2
== END | disposition home or self-care (01) ==
LOC: LAB 22:11
PROVIDERS: ATTEND Internal Medicine Cardiovascular Disease
DX: I25.10 Atherosclerotic heart disease of native coronary artery without angina pectoris (principal)
CPT/HCPCS: 36415; 80061

== ENCOUNTER → 2018-10-22 | Outpatient (CLI) | payer OTHER ==
[~2018-10-22] MED LIST changes: +ALBU2.5V8 INH; +AZIT250T PO; +HYDR115S2 PO; +METH4TAB2 PO
[2018-10-22 03:46] LABS: ALBUMIN 4.1 g/dL (3.4-5.0); ALBUMIN/GLOBULIN RATIO 1.1 (1.0-1.7); CALCIUM 9.2 mg/dL (8.5-10.1); CREATININE 1.2 mg/dL (0.7-1.3); GFR 64.6; POTASSIUM 4.2 mmol/L (3.5-5.1); TOTAL PROTEIN 7.8 g/dL (6.4-8.2)
[2018-10-22 04:05] LABS: CHOLESTEROL/HDL RATIO 3.7
[2018-10-23 01:12] LABS: HEMOGLOBIN A1C 5.4 % (4.8-5.6)
== END | disposition home or self-care (01) ==
LOC: SPEC 02:47
PROVIDERS: ATTEND Family Medicine
DX: E78.5 Hyperlipidemia, unspecified (principal); R73.9 Hyperglycemia, unspecified
CPT/HCPCS: 36415; 80053; 80061; 83036

== ENCOUNTER 2018-11-07 09:34 | Emergency (ER) | payer OTHER ==
[~2018-11-07] VITALS: Ht 170.2 cm; Wt 81.6 kg
[~2018-11-07 09:34] MED LIST changes: -ALBU2.5V8 INH; -AZIT250T PO; -HYDR115S2 PO; -METH4TAB2 PO
--- NOTE | 2018-11-07 10:05 | PHYS DOC ---
Past Medical History Past Medical History: CAD, GERD Past Surgical History: Other Additional Past Surgical Histo: DEVIATED SEPTUM, Cardiac stents Additional Information: Denies smoking Alcohol Use: None Drug Use: None Adult General Chief Complaint Chief Complaint: COUGH HPI HPI Patient is a 48 year old male who presents with complaining of cough. Patient complaining of productive cough with greenish sputum for the last 3-4 days associated with sore throat and nasal congestion. Patient denies fever and chills, shortness of breath, chest pain, sick contact. Patient is a nonsmoker. Review of Systems Review of Systems Constitutional: Denies fever or chills [] Eyes: Denies change in visual acuity, redness, or eye pain [] HENT: Reports nasal congestion and sore throat Respiratory: Reports cough, denies shortness of breath [] Cardiovascular: No additional information not addressed in HPI [] GI: Denies abdominal pain, nausea, vomiting, bloody stools or diarrhea [] : Denies dysuria or hematuria [] Musculoskeletal: Denies back pain or joint pain [] Integument: Denies rash or skin lesions [] Neurologic: Denies headache, focal weakness or sensory changes [] Endocrine: Denies polyuria or polydipsia [] All other systems were reviewed and found to be within normal limits, except as documented in this note. Allergies Allergies Allergies Coded Allergies Type Severity Reaction Last Updated Verified No Known Drug Allergies 01/13/15 No Physical Exam Physical Exam Constitutional: Well developed, well nourished, mild distress, non-toxic appearance. [] HENT: Normocephalic, atraumatic, bilateral external ears normal, oropharynx moist, pharyngeal erythema, no oral exudates, nose normal. [] Eyes: PERRLA, EOMI, conjunctiva normal, no discharge. [] Neck: Normal range of motion, no tenderness, supple, no stridor. [] Cardiovascular:Heart rate regular rhythm, no murmur [] Lungs & Thorax: Bilateral breath sounds clear to auscultation [] Abdomen: Bowel sounds normal, soft, no tenderness, no masses, no pulsatile masses. [] Skin: Warm, dry, no erythema, no rash. [] Back: No tenderness, no CVA tenderness. [] Extremities: No tenderness, no cyanosis, no clubbing, ROM intact, no edema. [] Neurologic: Alert and oriented X 3, normal motor function, normal sensory function, no focal deficits noted. [] Psychologic: Affect normal, judgement normal, mood normal. [] Current Patient Data Vital Signs Vital Signs Date Time Temp Pulse Resp B/P (MAP) Pulse Ox O2 Delivery O2 Flow Rate FiO2 11/07/18 10:11 98.1 100 18 136/86 (103) 97 Room Air 98.1 Lab Values Laboratory Tests Test 11/07/18 10:05 Influenza Type A Antigen Negative (NEGATIVE) Influenza Type B Antigen Negative (NEGATIVE) EKG EKG [] Radiology/Procedures Radiology/Procedures [facility] [address] [place] [address] IMAGING REPORT Signed PATIENT: SKY WHITTAKER ACCOUNT: [id number] : 1970 LOCATION: ER AGE: 48 SEX: M EXAM STATUS: REG ER ORD. PHYSICIAN: DONY BAUM MD REASON: cough and congestion PROCEDURE: CHEST PA & LATERAL Chest, PA and Lateral: Technique: PA and lateral views of the chest were obtained. History: Productive cough. Comparison: 05/28/2018. Findings: The heart and pulmonary vasculature appear within normal limits. The lungs are clear. The pleural margins are clear. Impression: No acute chest process is seen. Electronically signed by: Vinh Ott MD (11/07/2018 10:31 AM) [id number] DICTATED and SIGNED BY: VINH OTT MD DATE: 11/07/18 1031 Course & Med Decision Making Course & Med Decision Making Pertinent Labs and Imaging studies reviewed. (See chart for details) Dilution of patient in ER showed 48-year-old male patient with complaining of productive cough for several days. Patient had negative flu test and chest x- ray. Plan discharge patient home to diagnose of acute bronchitis. Dragon Disclaimer Dragon Disclaimer This electronic medical record was generated, in whole or in part, using a voice recognition dictation system. Departure Departure Impression: Primary Impression: Acute bronchitis Disposition: 01 HOME, SELF-CARE (@1053) Condition: STABLE Referrals: ROC ARNDT MD (PCP) Patient Instructions: Acute Bronchitis, Cough, Adult Additional Instructions: Drink plenty of liquids Follow-up with your primary care physician in 3-5 days Return to ER if not getting better Scripts Azithromycin (ZITHROMAX) 250 Mg Tablet 1 PKG PO UD for infection, #1 PKG Prov: DONY BAUM MD 11/07/18 Hydrocodone/Chlorphen P-Stirex (Tussionex Pennkinetic Susp) 115 Ml Anna.er.12h 5 ML PO BID for cough and congestion, #120 ML Prov: DONY BAUM MD 11/07/18 Albuterol Sulfate (PROAIR HFA INHALER) 8.5 Gm Hfa.aer.ad 2 PUFF INH PRN Q6HRS PRN for SHORTNESS OF BREATH, #1 INHALER 0 Refills Prov: DONY BAUM MD 11/07/18 Methylprednisolone (MEDROL) 4 Mg Tab.ds.pk 1 PKG PO UD for inflammation, #1 PKG Prov: DONY BAUM MD 11/07/18 DONY BAUM MD Nov 07, 2018 10:05
[2018-11-07 10:11] VITALS: BP 136/86
[2018-11-07 10:34] LABS: INFLUENZA A PATIENT NEGATIVE (NEGATIVE); INFLUENZA B PATIENT NEGATIVE (NEGATIVE)
--- NOTE | 2018-11-07 10:34 | RAD ---
Chest, PA and Lateral: Technique: PA and lateral views of the chest were obtained. History: Productive cough. Comparison: 05/28/2018. Findings: The heart and pulmonary vasculature appear within normal limits. The lungs are clear. The pleural margins are clear. Impression: No acute chest process is seen. Electronically signed by: Vinh Ott MD (11/07/2018 10:31 AM) [id number]
[2018-11-07] MEDS ORDERED: METH4TAB2 PO (10:56)
[2018-11-07] MEDS ORDERED: HYDR115S2 PO (10:56)
[2018-11-07] MEDS ORDERED: ALBU2.5V8 INH (10:56)
[2018-11-07] MEDS ORDERED: AZIT250T PO (10:56)
== END 2018-11-07 11:08 | disposition home or self-care (01) ==
LOC: ER 09:34
DX: J20.9 Acute bronchitis, unspecified (principal); K21.9 Gastro-esophageal reflux disease without esophagitis; I25.10 Atherosclerotic heart disease of native coronary artery without angina pectoris
CPT/HCPCS: 71046; 87804; 99284

== ENCOUNTER → 2019-04-01 | Outpatient (CLI) | payer OTHER ==
[~2019-04-01] MED LIST changes: +ALBU2.5V8 INH; +AZIT250T PO; +HYDR115S2 PO; +METH4TAB2 PO
[2019-04-01 05:32] LABS: BASO % 1 % (0-3); EOS # 0.3 x10^3/uL (0.0-0.7); EOS % 4 % (0-3); HEMATOCRIT 45.6 % (39.0-53.0); HEMOGLOBIN 15.8 g/dL (13.0-17.5); LYMPH % 27 % (24-48); MEAN CORPUSCULAR HEMOGLOBIN 33 pg (25-35); MEAN CORPUSCULAR HGB CONC 35 g/dL (31-37); MEAN CORPUSCULAR VOLUME 94 fL (79-100); MONO # 0.7 x10^3/uL (0.0-1.1); MONO % 9 % (0-9); NEUT # 4.4 x10^3/uL (1.8-7.7); NEUT % 59 % (31-73); PLATELET COUNT 238 x10^3/uL (140-400); RED BLOOD COUNT 4.86 x10^6/uL (4.30-5.70); RED CELL DISTRIBUTION WIDTH 12.5 % (11.5-14.5); WHITE BLOOD COUNT 7.4 x10^3/uL (4.0-11.0)
[2019-04-01 05:54] LABS: ALBUMIN 4.4 g/dL (3.4-5.0); ALBUMIN/GLOBULIN RATIO 1.2 (1.0-1.7); CALCIUM 9.4 mg/dL (8.5-10.1); CREATININE 1.1 mg/dL (0.7-1.3); GFR 71.4; POTASSIUM 3.7 mmol/L (3.5-5.1); TOTAL BILIRUBIN 1.1 mg/dL (0.2-1.0); TOTAL PROTEIN 8.1 g/dL (6.4-8.2)
[2019-04-01 05:55] LABS: CHOLESTEROL/HDL RATIO 3.4
[2019-04-02 03:08] LABS: HEMOGLOBIN A1C 5.5 % (4.8-5.6)
== END | disposition home or self-care (01) ==
LOC: SPEC 00:25
PROVIDERS: ATTEND Family Medicine
DX: K21.9 Gastro-esophageal reflux disease without esophagitis (principal); R73.9 Hyperglycemia, unspecified; E78.5 Hyperlipidemia, unspecified
CPT/HCPCS: 36415; 80053; 80061; 83036; 85025

== ENCOUNTER 2019-09-03 07:25 | Emergency (ER) | payer OTHER ==
[~2019-09-03] VITALS: Ht 170.2 cm; Wt 82.5 kg
--- NOTE | 2019-09-03 07:46 | PHYS DOC ---
Past Medical History Past Medical History: CAD, GERD Additional Past Medical Histor: 2 x cardiac stents, angioplasty Past Surgical History: Other Additional Past Surgical Histo: DEVIATED SEPTUM, Cardiac stents Alcohol Use: None Drug Use: None Adult General Chief Complaint Chief Complaint: ANKLE PROBLEM HPI HPI 49-year-old male presents with 3 week history of distal tibial swelling at site where his large dog actually ran into his leg. Patient reports initially was very swollen and black and blue. Reports history of Plavix and aspirin use. Denies any fever or chills. Reports the bruising has since gone away however continues to have a swollen tender spot. Reports no difficulty with ambulation. Denies any redness currently. Patient reports he initially iced the area which did help. Reports currently he has not done anything else to the area. Review of Systems Review of Systems Constitutional: Denies fever or chills Musculoskeletal: Denies ankle pain or foot pain Integument: Reports swollen tender area on right inner distal tibial area Neurologic: Denies headache, focal weakness or sensory changes Complete systems were reviewed and found to be within normal limits, except as documented in this note. Allergies Allergies Allergies Coded Allergies Type Severity Reaction Last Updated Verified No Known Drug Allergies 09/03/19 No Physical Exam Physical Exam Constitutional: Well developed, well nourished, no acute distress, non-toxic appearance HENT: Normocephalic, atraumatic Eyes: Conjunctiva normal, no discharge Neck: Normal range of motion, supple Cardiovascular: Right foot CR < 2 sec, Right DP and PT +2 Lungs & Thorax: No respiratory distress Skin: Warm, dry, no erythema, no ecchymosis Extremities: No bony tenderness to right ankle or proximal tibial or fibula, ROM intact, anterior drawer of right ankle negative, trace edema to right ankle, 2cm x 2cm area of induration and tenderness consistent for hematoma Neurologic: Alert and oriented X 3, no focal deficits noted Psychologic: Affect normal, judgment normal Current Patient Data Vital Signs Vital Signs Date Time Temp Pulse Resp B/P (MAP) Pulse Ox O2 Delivery O2 Flow Rate FiO2 09/03/19 07:30 97.6 77 16 143/93 (110) 98 Room Air 97.6 EKG EKG [] Radiology/Procedures Radiology/Procedures [] Course & Med Decision Making Course & Med Decision Making Patient presents with history of present illness and physical exam consistent for hematoma. No surrounding erythema noted. No bony tenderness. Limb neurovascularly intact. X-ray imaging not warranted per Howell ankle rules. ITALO applied. Patient stable for discharge with outpatient follow-up with PCP. Discussed flavio obando and plan with patient, who acknowledges understanding and agreement. Dragon Disclaimer Dragon Disclaimer This electronic medical record was generated, in whole or in part, using a voice recognition dictation system. Splinting Splinting : Location: Right distal tib/fib Pre-Made Type: ITALO bandage Pre-Proc Neuro Vasc Exam: normal Post-Proc Neuro Vasc Exam: normal, unchanged from pre-exam Departure Departure Impression: Primary Impression: Hematoma Disposition: 01 HOME, SELF-CARE Condition: STABLE Referrals: ROC ARNDT MD (PCP) Patient Instructions: Hematoma, [id number] Additional Instructions: Use over the counter Tylenol as needed for discomfort. TROY ROY DO Sep 03, 2019 07:46
[2019-09-03 07:57] VITALS: BP 129/70
== END 2019-09-03 07:57 | disposition home or self-care (01) ==
LOC: ER 07:25
DX: S90.01XA Contusion of right ankle, initial encounter (principal); R60.0 Localized edema; I25.10 Atherosclerotic heart disease of native coronary artery without angina pectoris; K21.9 Gastro-esophageal reflux disease without esophagitis; Z98.890 Other specified postprocedural states; W54.8XXA Other contact with dog, initial encounter; Y93.89 Activity, other specified; Y92.89 Other specified places as the place of occurrence of the external cause; Y99.8 Other external cause status
CPT/HCPCS: 99282

== ENCOUNTER 2019-10-29 07:43 | Emergency (ER) | payer OTHER ==
[~2019-10-29] VITALS: Ht 170.2 cm; Wt 81.8 kg
--- NOTE | 2019-10-29 07:52 | PHYS DOC ---
Past Medical History Past Medical History: CAD, GERD Additional Past Medical Histor: 2 x cardiac stents, angioplasty Past Surgical History: Other Additional Past Surgical Histo: DEVIATED SEPTUM, Cardiac stents Smoking Status: Never Smoker Alcohol Use: None Drug Use: None Adult General Chief Complaint Chief Complaint: FACE PAIN HPI HPI Patient is a 49 year old male presents with complaint of being struck in the nose with a ball 3 days ago. He is concerned because he "felt a crack." No significant pain or difficulty breathing. History of septal surgery. Review of Systems Review of Systems All other systems were reviewed and found to be within normal limits, except as documented in this note. Allergies Allergies Allergies Coded Allergies Type Severity Reaction Last Updated Verified No Known Drug Allergies 09/03/19 No Physical Exam Physical Exam Constitutional: Well developed, well nourished, no acute distress, non-toxic appearance. [] HENT: Normocephalic, atraumatic, bilateral external ears normal, oropharynx moist, no oral exudates, nose normal. [] Eyes: PERRLA, EOMI, conjunctiva normal, no discharge. [] Neck: Normal range of motion, no tenderness, supple, no stridor. [] Cardiovascular:Heart rate regular rhythm, no murmur [] Lungs & Thorax: Bilateral breath sounds clear to auscultation [] Abdomen: Bowel sounds normal, soft, no tenderness, no masses, no pulsatile masses. [] Skin: Warm, dry, no erythema, no rash. [] Back: No tenderness, no CVA tenderness. [] Extremities: No tenderness, no cyanosis, no clubbing, ROM intact, no edema. [] Neurologic: Alert and oriented X 3, normal motor function, normal sensory function, no focal deficits noted. [] Psychologic: Affect normal, judgement normal, mood normal. [] Current Patient Data Vital Signs Vital Signs Date Time Temp Pulse Resp B/P (MAP) Pulse Ox O2 Delivery O2 Flow Rate FiO2 10/29/19 07:53 97.9 65 16 137/95 (109) 98 Room Air 97.9 EKG EKG [] Radiology/Procedures Radiology/Procedures NASAL BONES 3+V History: Pain. Struck with ball. Technique: 4 views nasal bones. Comparison: None. Findings: Normal alignment. No displaced fracture. Patent paranasal sinuses. Impression: 1. No displaced fracture. If persistent clinical concern, CT maxillofacial can better evaluate.[] Course & Med Decision Making Course & Med Decision Making Pertinent Labs and Imaging studies reviewed. (See chart for details) [] Dragon Disclaimer Dragon Disclaimer This electronic medical record was generated, in whole or in part, using a voice recognition dictation system. Departure Departure Impression: Primary Impression: Nose pain Disposition: HOME, SELF-CARE Condition: STABLE Referrals: ROC ARNDT MD (PCP) PLEASE FOLLOW UP FOR ONGOING SYMPTOMS. RO CHAVEZ DO Oct 29, 2019 07:52
[2019-10-29 07:53] VITALS: BP 137/95
--- NOTE | 2019-10-29 09:12 | RAD ---
NASAL BONES 3+V History: Pain. Struck with ball. Technique: 4 views nasal bones. Comparison: None. Findings: Normal alignment. No displaced fracture. Patent paranasal sinuses. Impression: 1. No displaced fracture. If persistent clinical concern, CT maxillofacial can better evaluate. Electronically signed by: Kleber Mary DO (10/29/2019 9:09 AM) [id number]
== END 2019-10-29 09:31 | disposition home or self-care (01) ==
LOC: ER 07:43
DX: J34.89 Other specified disorders of nose and nasal sinuses (principal); I25.10 Atherosclerotic heart disease of native coronary artery without angina pectoris; K21.9 Gastro-esophageal reflux disease without esophagitis; Z98.890 Other specified postprocedural states
CPT/HCPCS: 70160; 99283

== ENCOUNTER → 2020-02-15 | Outpatient (CLI) | payer OTHER | END | disposition home or self-care (01) | LOC: LAB 15:31 | PROVIDERS: ATTEND Internal Medicine Pulmonary Disease | DX: Z20.828 Contact with and (suspected) exposure to other viral communicable diseases (principal) | CPT/HCPCS: U0003-CS ==

== ENCOUNTER 2020-04-28 07:45 | Emergency (ER) | payer BC, OTHER ==
[~2020-04-28] VITALS: Ht 170.2 cm; Wt 81.8 kg
[2020-04-28 07:50] VITALS: BP 132/85
--- NOTE | 2020-04-28 08:20 | RAD ---
EXAM: AP, oblique and lateral views right foot DATE: 04/28/2020 7:56 AM INDICATION: Reason: foot pain over R heel / Spl. Instructions: / History: COMPARISON: No Prior FINDINGS/ IMPRESSION: Diffuse soft tissue swelling about the right foot without evidence for acute fracture or dislocation. Small os trigonum. Small plantar calcaneal enthesophyte. Diffuse soft tissue swelling about right foot. Electronically signed by: Lee Sanchez MD (04/28/2020 8:17 AM) [id number]
--- NOTE | 2020-04-28 08:25 | PHYS DOC ---
Past Medical History Past Medical History: CAD, GERD Additional Past Medical Histor: 2 x cardiac stents, angioplasty Past Surgical History: Other Additional Past Surgical Histo: DEVIATED SEPTUM, Cardiac stents Smoking Status: Never Smoker Alcohol Use: None Drug Use: None General Adult EDM: Chief Complaint: FOOT INJURY PAIN HPI: HPI: Patient is a 49-year-old male who presents with chief complaint of chronic right plantar foot pain. He states he has had the pain relief for months. He states that he was told he may have plantar fasciitis. He has been trying Aleve at home. He states he did receive a steroid injection to his foot several months ago that was not successful. He states he has appoint with his primary care physician in 1 week which is his main reason for presentation today. He states he just wants and imaging on file for his primary care doctor to look at. States that the pain seems to be worse in the morning. States he has tried some stretching activities. Denies coolness to the foot. Denies skin changes. Denies trauma or injury. No other complaints. Review of Systems: Review of Systems: Constitutional: Denies fever or chills. [] Eyes: Denies change in visual acuity. [] HENT: Denies nasal congestion or sore throat. [] Respiratory: Denies cough or shortness of breath. [] Cardiovascular: Denies chest pain or edema. [] GI: Denies abdominal pain, nausea, vomiting, bloody stools or diarrhea. [] : Denies dysuria. [] Musculoskeletal: Positive for foot pain Integument: Denies rash. [] Neurologic: Denies headache, focal weakness or sensory changes. [] Endocrine: Denies polyuria or polydipsia. [] Lymphatic: Denies swollen glands. [] Psychiatric: Denies depression or anxiety. [] Heart Score: Risk Factors: Risk Factors: DM, Current or recent (<one month) smoker, HTN, HLP, family h istory of CAD, obesity. Risk Scores: Score 0 - 3: 2.5% MACE over next 6 weeks - Discharge Home Score 4 - 6: 20.3% MACE over next 6 weeks - Admit for Clinical Observation Score 7 - 10: 72.7% MACE over next 6 weeks - Early Invasive Strategies Allergies: Allergies: Allergies Coded Allergies Type Severity Reaction Last Updated Verified No Known Drug Allergies 04/28/20 No Physical Exam: PE: Constitutional: Well developed, well nourished, no acute distress, non-toxic appearance. [] HENT: Normocephalic, atraumatic, bilateral external ears normal, oropharynx moist, no oral exudates, nose normal. [] Eyes: PERRLA, EOMI, conjunctiva normal, no discharge. [] Neck: Normal range of motion, no tenderness, supple, no stridor. [] Cardiovascular:Heart rate regular rhythm, no murmur [] Lungs & Thorax: Bilateral breath sounds clear to auscultation [] Abdomen: soft, no tenderness, no masses, no pulsatile masses. [] Skin: Warm, dry, no erythema, no rash. [] Back: No tenderness, no CVA tenderness. [] Extremities: R KNEE/ANKLE/FOOT: Focal tenderness to palpation at the plantar aspect of the right foot overlying the calcaneus. Tissue compartments are soft. Distal pulses are 2+. Knee extension is intact. Plantar flexion is intact. Proximal fibula is not tender to palpation. Medial malleolus is not tender to palpation. Lateral malleolus is not tender to palpation. 5th metatarsal head is not tender to palpation. There is no obvious deformity. Passive ROM is reduced due to pain. Active ROM is reduced due to pain. Neurologic: Alert and oriented X 3, normal motor function, normal sensory function, no focal deficits noted. [] Psychologic: Affect normal, judgement normal, mood normal. [] Current Patient Data: Vital Signs: Vital Signs Date Time Temp Pulse Resp B/P (MAP) Pulse Ox O2 Delivery O2 Flow Rate FiO2 04/28/20 07:50 97.9 64 16 132/85 (101) 97 Room Air 97.9 EKG: EKG: [] Radiology/Procedures: Radiology/Procedures: [][facility] [address] [place], [place] [id number] IMAGING REPORT Signed PATIENT: SKY WHITTAKER ACCOUNT: [id number] : 1970 LOCATION: ER AGE: 49 SEX: M EXAM STATUS: PRE ER ORD. PHYSICIAN: PATRICIA ZAMORA DO REASON: foot pain over R heel PROCEDURE: FOOT RIGHT 3V EXAM: AP, oblique and lateral views right foot DATE: 04/28/2020 7:56 AM INDICATION: Reason: foot pain over R heel / Spl. Instructions: / History: COMPARISON: No Prior FINDINGS/ IMPRESSION: Diffuse soft tissue swelling about the right foot without evidence for acute fracture or dislocation. Small os trigonum. Small plantar calcaneal enthesophyte. Diffuse soft tissue swelling about right foot. Electronically signed by: Lee Pantoja MD (04/28/2020 8:17 AM) [id number] DICTATED and SIGNED BY: LEE PANTOJA MD DATE: 04/28/2017 Course & Med Decision Making: Course & Med Decision Making Pertinent Labs and Imaging studies reviewed. (See chart for details) [] Patient is a well-appearing 49-year-old male who presents with chief complaint of chronic right plantar foot pain. Plain film imaging reveals no acute osseous abnormality however calcaneal bone spur was potentially visualized. Low suspicion for emergent etiology regarding his symptoms. Encouraged to continue take Aleve at home. I did offer him stronger pain medication but he is declining. Instructed to follow-up with his primary care physician is next week to schedule appointment. Return precautions discussed and understood. Stable for discharge home. Dragon Disclaimer: Dragon Disclaimer: This electronic medical record was generated, in whole or in part, using a voice recognition dictation system. Departure Departure Impression: Primary Impression: Foot pain, right Disposition: 01 HOME, SELF-CARE Condition: STABLE Referrals: ROC ARNDT MD (PCP) Patient Instructions: Plantar Fasciitis (Heel Spur Syndrome) with Rehab- [facility] Additional Instructions: Please follow-up with your primary care physician at your neck scheduled appointment. Justicifation of Admission Dx: Justifications for Admission: Justification of Admission Dx: N/A PATRICIA ZAMORA DO Apr 28, 2020 08:25
== END 2020-04-28 08:39 | disposition home or self-care (01) ==
LOC: ER 07:45
DX: M79.671 Pain in right foot (principal); K21.9 Gastro-esophageal reflux disease without esophagitis; I25.10 Atherosclerotic heart disease of native coronary artery without angina pectoris; Z98.890 Other specified postprocedural states
CPT/HCPCS: 73630; 99283

== ENCOUNTER → 2020-10-12 | Outpatient (CLI) | payer OTHER ==
[2020-10-12 01:28] LABS: HEMATOCRIT 43.2 % (39.0-53.0); HEMOGLOBIN 15.1 g/dL (13.0-17.5); RED BLOOD COUNT 4.65 x10^6/uL (4.30-5.70); RED CELL DISTRIBUTION WIDTH 13.4 % (11.5-14.5)
[2020-10-12 01:50] LABS: ALBUMIN 4.2 g/dL (3.4-5.0); ALBUMIN/GLOBULIN RATIO 1.3 (1.0-1.7); CALCIUM 8.9 mg/dL (8.5-10.1); CREATININE 1.1 mg/dL (0.7-1.3); GFR 70.9; TOTAL BILIRUBIN 0.8 mg/dL (0.2-1.0); TOTAL PROTEIN 7.4 g/dL (6.4-8.2)
[2020-10-12 02:09] LABS: CHOLESTEROL/HDL RATIO 2.9
== END ==
LOC: LAB 00:57
PROVIDERS: ATTEND Family Medicine
DX: I10 Essential (primary) hypertension (principal); E78.5 Hyperlipidemia, unspecified
CPT/HCPCS: 36415; 80053; 80061; 85027

== ENCOUNTER → 2020-11-13 | Outpatient (CLI) | payer OTHER ==
--- NOTE | 2020-11-13 16:02 | RAD ---
MR#: [id number] Date of Study: 11/13/2020 Ordering Physician: LUIS BATEMAN, Referring Physician: COLIN VASQUEZ Tech: RT Snow (R) (N) APPROVED REPORT Test Type: Exercise Stress Nurse/Tech: Svetlana Becker RN Test Indications: CAD Cardiac History: Cardiac stents x2 in 2017, See EMR. Medications: See EMR. Medical History: See EMR. Resting ECG: SB Resting Heart Rate: 49 bpm Resting Blood Pressure: 133/91mmHg Pretest Chest Pain: No chest pain Nurse/Tech Notes Lungs CTA, Heart tones regular. Consent: The procedure was explained to the patient in lay terms. Informed consent was witnessed. Dave eout was entered into [employer]. History and Stress Test performed by RT Snow (Ivan) (N) Stress Symptoms No chest pain or symptoms. POST EXERCISE Reason for Termination: Reached target heart rate Target HR: Yes Max HR: 153 bpm 106% of Maximum Predicted HR: 144 bpm Exercise duration: 9:32 min:sec, 4 Stage Exercise capacity: 13.4METs Max Blood Pressure: 160/88mmHg Blood Pressure response to exercise: Normal blood pressure response during stress. Heart Rate response to exercise: WNL Chest Pain: No. Arrhythmia: No. ST Change: No. No significant change from baseline EKG. INTERPRETATION Stress EKG Conclusion: Baseline EKG showed sinus rhythm. No ischemic changes at peak stress. No arr hythmias. Imaging Protocol IMAGE PROTOCOL: Rest Tc-99m/stress Tc-99m 1 day Rest: Stress: Viability: Radiopharm.Tc99m ChwqwkdcxUm50k Sestamibi Dose10.5mCi 31mCi Duration 13min. 13min. Img Date 11/13/2020 11/13/2020 Inj-Img Rrdq88jhy. 60min. Post-Injection Exercise: 1 minute Rest Admin Site:IV - Right AntecubitalAdministrator:RT Snow (Ivan)(N) Stress Admin Site: IV - Right AntecubitalAdministrator: RT Héctor Adamson)(N) STRESS DATA End Diast. Vol.94.0mlLVEDV index BSA49.0ml End Syst. Vol.31.0mlLVESV index BSA16.0ml Myocardial Cpdz234.0gEject. Rjqhijyd97.0% Stress Scores Regional WT1.00Summed WT11.00 Regional WM0.00Summed WM0.00 Study quality was good. Left Ventricular size was Normal at Rest and Stress. Lung uptake was . Left Ventricular ejection fraction is 66%. The rest and stress images show normal perfusion, normal contraction and thickening. LV Perf. Quant 17 Seg. SSS2.00 17 Seg. SRS2.00 17 Seg. SDS0.00 Stress Defect Extent (% LAD)0.00Rest Defect Extent (% LAD)0.00Rev. Defect Extent (% LAD)0.00 Stress Defect Extent (% LCX) 0.00Rest Defect Extent (% LCX)0.00Rev. Defect Extent (% LCX)0.00 Stress Defect Extent (% RCA)4.40Rest Defect Extent (% RCA)8.90Rev. Defect Extent (% RCA)0.00 Stress Defect Extent (% ROBERT)1.30Rest Defect Extent (% ROBERT)2.20Rev. Defect Extent (% ROBERT)0.00 Conclusion 1. Treadmill exercise cardioisotope stress test did not show any evidence of ischemia or infarct. 2. Normal left ventricular systolic function with ejection fraction calculated at 66%. 3. Patient had good activity tolerance. Low risk for cardiac events. Signed by : Jason Graham, Electronically Approved : 11/13/2020 16:01:44
--- NOTE | 2020-11-13 16:52 | CARD ---
MR#: [id number] Date of Study: 11/13/2020 Ordering Physician: LUIS BATEMAN, Referring Physician: LUIS BATEMAN, Tech: Jen Carleen, [facility] APPROVED REPORT EXAM: Two-dimensional and M-mode echocardiogram with Doppler and color Doppler. Other Information Quality : AverageHR: 57bpm INDICATION Dyspnea 2D DIMENSIONS RVDd3.7 (2.9-3.5cm)Left Atrium(2D)2.8 (1.6-4.0cm) IVSd0.9 (0.7-1.1cm)Aortic Root(2D)3.3 (2.0-3.7cm) LVDd4.3 (3.9-5.9cm)LVOT Diameter2.0 (1.8-2.4cm) PWd1.0 (0.7-1.1cm)LVDs2.9 (2.5-4.0cm) FS (%) 32.4 %SV51.9 ml LVEF(%)60.9 (>50%) Aortic Valve AoV Peak Matthew.112.0cm/sAoV VTI25.2cm AO Peak GR.5.0mmHgLVOT Peak Matthew.78.3cm/s LVOT VTI 18.25cmAO Mean GR.3mmHg DENISE (VMAX)1.29oe5HGC (VTI)2.32cm2 AI P 1/2 Iqaz547sj Mitral Valve MV E Yhzavqtf59.8cm/sMV DECEL [id number] MV A Ftkephce47.6cm/sMV DXP63lh E/A Ratio1.4MVA (PHT)3.92cm2 TDI E/Lateral E'5.1E/Medial E'7.0 Pulmonary Valve PV Peak Wcyskvum04.4cm/sPV Peak Grad.3mmHg Tricuspid Valve TR P. Tfllmjxo268bk/sRAP YWCGURHK1kcEl TR Peak Gr.13nuZqYCHM81wuNr Pulmonary Vein S1 Zphsdwuk37.5cm/sD2 Ikxputag34.2cm/s PVa [id number] LEFT VENTRICLE The left ventricle is normal size. There is normal left ventricular wall thickness. The left ventricu lar systolic function is normal. The Ejection Fraction is 55%. There is normal LV segmental wall crissy on. The left ventricular diastolic function and filling is normal for age. RIGHT VENTRICLE The right ventricle is borderline dilated. There is normal right ventricular wall thickness. The righ t ventricular systolic function is normal. ATRIA The left atrium size is normal. The right atrium size is normal. The interatrial septum is intact wit h no evidence for an atrial septal defect or patent foramen ovale as noted on 2-D or Doppler imaging. AORTIC VALVE The aortic valve is thickened but opens well. Doppler and Color Flow revealed trace aortic regurgitat ion. There is no significant aortic valvular stenosis. Calculated aortic valve area is 2.56 cm2 with maximum pressure gradient of 7 mmHg and mean pressure gradient of 4 mmHg. MITRAL VALVE The mitral valve is normal in structure and function. There is no evidence of mitral valve prolapse. There is no mitral valve stenosis. Doppler and Color-flow revealed trace mitral regurgitation. TRICUSPID VALVE The tricuspid valve is normal in structure and function. Doppler and Color Flow revealed trace tricus pid regurgitation with an estimated PAP of 22 mmHg. There is no tricuspid valve stenosis. PULMONIC VALVE The pulmonary valve is normal in structure and function. Doppler and Color Flow revealed trace pulmon ic valvular regurgitation. GREAT VESSELS The aortic root is normal in size. The ascending aorta is normal in size. The IVC is normal in size a nd collapses >50% with inspiration. PERICARDIAL EFFUSION There is no evidence of significant pericardial effusion. Critical Notification Critical Value: No <Conclusion> The left ventricular systolic function is normal. The Ejection Fraction is 55%. There is normal LV segmental wall motion. Trace mitral regurgitation. Trace tricuspid regurgitation with an estimated PAP of 22 mmHg. There is no evidence of significant pericardial effusion. Signed by : Jason Graham, Electronically Approved : 11/13/2020 16:51:30
== END ==
LOC: NM 09:46
PROVIDERS: ATTEND Internal Medicine Cardiovascular Disease
DX: I25.10 Atherosclerotic heart disease of native coronary artery without angina pectoris (principal)
CPT/HCPCS: 78452; 93017; 93306; A9500